=== PATIENT | female | born 1960 ===

== ENCOUNTER 2024-07-13 07:00 | Inpatient (IN) | payer OTHER ==
[~2024-07-13] VITALS: Ht 160 cm; Wt 113.4 kg
[2024-07-13] MEDS ORDERED: SYNTHROID175 MCG PO (08:17)
[2024-07-13] MEDS ORDERED: LANTUS SOL100 UNIT/1 (08:18)
[2024-07-13] MEDS ORDERED: METFORMIN HCL1000 M2 PO (08:18)
[2024-07-13] MEDS ORDERED: GLIMEPIRIDE4 M1 PO (08:18)
[2024-07-13] MEDS ORDERED: ZOCOR40 MG PO (08:19)
[2024-07-13] MEDS ORDERED: RINVOQ ER15 MG PO (08:19)
[2024-07-13] MEDS ORDERED: CYMBALTA60 MG PO (08:21)
[2024-07-13] MEDS ORDERED: TYLENOL ARTHRI650 MG PO (08:22)
[2024-07-13 08:30] VITALS: BP 135/77
[2024-07-13] MEDS ORDERED: COZAAR25 MG PO (08:31)
[2024-07-13 08:45] LABS: URINE APPEARANCE Clear; URINE BILIRRUBIN Negative (NEGATIVE); URINE BLOOD Negative; URINE COLOR Yellow; URINE GLUCOSE Negative (NEGATIVE); URINE KETONE Trace (NEGATIVE); URINE LEUKOCYTE Trace; URINE NITRATE Negative; URINE PROTEIN Negative (NEGATIVE); URINE UROBILINOGEN 0.2 E.U./dl
[2024-07-13 08:47] LABS: HEMATOCRIT 33.8 % (36.0-45.00); HEMOGLOBIN 10.9 g/dL (12.0-15.00); MEAN CELL VOLUME 95.4 fL (80.00-100.00); MEAN CORPUSCULAR HEMOGLOBIN 30.9 pg (27.00-32.0); MEAN CORPUSCULAR HGB CONC 32.4 g/dl (32.0-36.0); PLATELET COUNT 323 K/uL (150-450); RED BLOOD COUNT 3.54 M/uL (4.00-6.00); RED CELL DISTRIBUTION WIDTH 15.9 % (11.5-14.5)
[2024-07-13 08:50] LABS: URINE BACTERIA 613.1 uL (0.0-1933); URINE EPITHELIAL CELLS 40.2 uL (0.0-38.8); URINE RBC 8.1 uL (0.0-20.8); URINE WBC 16.4 uL (0.0-23.2)
[2024-07-13 08:53] LABS: URINE CAST 0.14 uL (0.0-1.40)
[2024-07-13 09:06] LABS: INR 0.97; PARTIAL THROMBOPLASTIN TIME 27.1 SECONDS (22.0-34.0); PROTHROMBIN TIME 10.6 SECONDS (9.0-11.5)
[2024-07-13 09:56] LABS: ALBUMIN 3.6 gm/dL (3.4-5.0); BILIRUBIN TOTAL 0.44 mg/dL (0.3-1.2); CALCIUM 8.2 mg/dL (8.5-10.1); CREATININE SERUM 0.7 mg/dL (0.55-1.02); GFR 83.72; GLOBULINA 3.1 G/DL (2.4-3.5); POTASSIUM 4.55 mEq/L (3.5-5.1); TOTAL PROTEIN 6.7 gm/dL (6.4-8.2)
[2024-07-20] MEDS ORDERED: OxyCODONE HCL/APAP UD (PERCOCET) PO PRN (09:15)
[2024-07-20] MEDS ORDERED: ONDANSETRON HCL 2 MG/ML VIAL IV PRN (09:15)
[2024-07-20] MEDS ORDERED: CEFAZOLIN SODIUM 1,000 MG VIAL IV ONE (10:00)
[2024-07-20] MEDS ORDERED: MORPHINE SULFATE 4 MG/ML VIAL IV ONE (10:15)
[2024-07-20] MEDS ORDERED: KETOROLAC TROMETHAMINE 30 MG VIAL IJ ONE (10:15)
[2024-07-20] MEDS ORDERED: TRANEXAMIC ACID 100MG/1ML (1000MG) AMPUL IV ONE ×2 (10:15)
[2024-07-20] MEDS ORDERED: CEFAZOLIN SODIUM 1,000 MG VIAL IV SCH (12:00)
[2024-07-20] MEDS ORDERED: MORPHINE SULFATE 4 MG/ML CARTRIDGE IV SCH (12:00)
[2024-07-20 15:58] VITALS: BP 102/58
[2024-07-20] MEDS ORDERED: ENALAPRILAT DIHYDRATE 1.25 MG/ML VIAL IV PRN (19:30)
[2024-07-20] MEDS ORDERED: INSULIN LISPRO 1,000 UNIT/10 ML UNITS SUBCUTANEO PRN (19:30)
[2024-07-20] MEDS ORDERED: DEXTROSE 50 % IN WATER 0.5 G/ML DISP.SYRIN IV PRN (19:30)
[2024-07-20] MEDS ORDERED: FAMOtidine 20 MG TABLET PO SCH (21:00)
[2024-07-20] MEDS ORDERED: ORPHENADRINE CITRATE 100 MG TABLET PO SCH (21:00)
[2024-07-20] MEDS ORDERED: GABAPENTIN 100 MG CAPSULE PO SCH (21:00)
[2024-07-21] VITALS: BP 123/72
[2024-07-21 01:16] LABS: HEMATOCRIT 29.3 % (36.0-45.00); MEAN CELL VOLUME 93.3 fL (80.00-100.00); MEAN CORPUSCULAR HEMOGLOBIN 31.2 pg (27.00-32.0); MEAN CORPUSCULAR HGB CONC 33.5 g/dl (32.0-36.0); PLATELET COUNT 247 K/uL (150-450); RED BLOOD COUNT 3.14 M/uL (4.00-6.00); RED CELL DISTRIBUTION WIDTH 15.7 % (11.5-14.5)
[2024-07-21 01:17] LABS: HEMOGLOBIN 9.8 g/dL (12.0-15.00)
[2024-07-21] MEDS ORDERED: LEVOTHYROXINE SODIUM 150 MCG TABLET PO SCH (06:00)
[2024-07-21 08:41] VITALS: BP 111/69
[2024-07-21] MEDS ORDERED: APIXABAN 2.5 MG TABLET PO SCH (09:00)
[2024-07-21 16:07] VITALS: BP 147/76
[2024-07-21] MEDS ORDERED: SOD FERRIC GLUC COMPLX/SUCROSE 62.5 MG/5 ML AMPUL IV SCH (17:00)
[2024-07-21] MEDS ORDERED: VITAMIN B COMPLEX 1 EACH PO SCH (17:00)
[2024-07-21] MEDS ORDERED: Cyanocobalamin/Mecobalamin 1 TAB.SL SL SCH (17:00)
[2024-07-22 00:55] VITALS: BP 132/67
[2024-07-22 03:11] LABS: HEMATOCRIT 29.4 % (36.0-45.00); HEMOGLOBIN 9.8 g/dL (12.0-15.00); MEAN CELL VOLUME 93.3 fL (80.00-100.00); MEAN CORPUSCULAR HGB CONC 33.2 g/dl (32.0-36.0); PLATELET COUNT 254 K/uL (150-450); RED BLOOD COUNT 3.16 M/uL (4.00-6.00); RED CELL DISTRIBUTION WIDTH 15.5 % (11.5-14.5)
[2024-07-22 08:50] VITALS: BP 148/83
[2024-07-22] MEDS ORDERED: ELIQUIS2.5 MG PO (11:35)
[2024-07-22] MEDS ORDERED: OXYC1TAB9 PO (11:35)
[2024-07-22] MEDS ORDERED: GABAPENTIN100 MG PO (11:35)
[2024-07-22] MEDS ORDERED: NORFLEX100MG PO (11:35)
== END 2024-07-22 22:34 | DRG 470 ==
LOC: O/R 07-20 05:56 → OB/GYN 07-20 05:56 → SURH 07-20 07:00 → OB/GYN 07-20 13:40
PROVIDERS: ADMIT Orthopaedic Surgery; ATTEND Orthopaedic Surgery
PROC: 0QUF0JZ Supplement Left Patella with Synthetic Substitute, Open Approach (ICD-10-PCS; 2024-07-20)
PROC: 0SRD0JZ Replacement of Left Knee Joint with Synthetic Substitute, Open Approach (ICD-10-PCS; principal; 2024-07-20 11:30)
DX: M17.12 Unilateral primary osteoarthritis, left knee (principal); D62 Acute posthemorrhagic anemia; G47.33 Obstructive sleep apnea (adult) (pediatric); E11.9 Type 2 diabetes mellitus without complications; I10 Essential (primary) hypertension; E66.9 Obesity, unspecified; E03.9 Hypothyroidism, unspecified; D56.9 Thalassemia, unspecified; M06.9 Rheumatoid arthritis, unspecified; L40.9 Psoriasis, unspecified; Z96.652 Presence of left artificial knee joint